=== PATIENT | male | born 1955 | race Caucasian/White ===

== ENCOUNTER → 2019-04-24 | Outpatient (CLI) | payer OTHER ==
--- NOTE | 2019-04-24 15:36 | NUR ---
[facility] NOTIFIED OF CRITICAL [id number] VALUE. ENTIRE ABG ANG SATURATION FAXED TO THEM.
== END | disposition home or self-care (01) ==
LOC: RT 14:53
DX: J44.9 Chronic obstructive pulmonary disease, unspecified (principal)
CPT/HCPCS: 36600